=== PATIENT | male | born 1970 | race Caucasian/White ===

== ENCOUNTER 2017-08-08 10:23 | Emergency (ER) | payer OTHER, MEDICAID ==
[2017-08-08 10:46] VITALS: PULSE 73; TEMP 97.9
--- NOTE | 2017-08-08 10:58 | EDPHY ---
H & P Stated Complaint: twisted left foot on HPI/ROS: CHIEF COMPLAINT: Left foot injury HISTORY OF PRESENT ILLNESS: This is a 47-year-old male who is developmentally disabled. He arrives with his caregiver, with whom he lives. She tells me that on , 2 days ago, he reports twisting his left foot while at his day program. He has not complained of pain. He has been walking without a limp. However, this morning she noticed that the foot was swollen and when she palpated the bones of his foot he had pain along the lateral aspect. He denies pain. REVIEW OF SYSTEMS: A ten point review of systems was performed and is negative with the exception of the items mentioned in the HPI. Past medical history:. 1. Developmental delay 2. Diabetes Past surgical history: None Social history: He lives with a caregiver who has been with him for over 10 years. He attends a day program. He does not use tobacco or alcohol products. General Appearance: Alert. Vital signs reviewed. Neck: Nontender to palpation over the cervical spine in the midline. Respiratory: Lungs are clear to auscultation; no wheezes, rales, or rhonchi. Cardiovascular: Regular rate and rhythm; no murmur, rub, or gallop. Gastrointestinal: Abdomen is soft and nontender, no masses or organomegaly, bowel sounds normal. Skin: Warm and dry, no rashes on exposed skin, normal color. Back: Nontender to palpation over the thoracolumbar spine. No CVAT. Extremities: Left foot is swollen across the top of the foot. There is some bruising at the base of the 4th and 5th toes. Tender to palpation over the metatarsal bones laterally. He has full active range of motion of his left ankle and knee. He is able to wiggle his toes without discomfort. Pulses: 2+ dorsalis pedis pulses bilaterally. Neurological: Alert and oriented. Moving all four extremities easily and equally. Sensation is intact to light touch over his left lower extremity. Psychiatric: Normal affect. - Personal History Current Tetanus/Diphtheria Vaccine: Yes Current Tetanus Diphtheria and Acellular Pertussis (TDAP): Yes - Medical/Surgical History Hx Asthma: No Hx Diabetes: Yes Hx Cardiac Disease: No Hx Renal Disease: No Hx Cirrhosis: No Hx Alcoholism: No Hx HIV/AIDS: No Hx Splenectomy or Spleen Trauma: No Other PMH: diabetes - Social History Smoking Status: Never smoked Constitutional: Initial Vital Signs Temperature (C) 36.6 C 08/08/17 10:40 Heart Rate 73 08/08/17 10:40 Respiratory Rate 20 08/08/17 10:40 Blood Pressure 118/66 08/08/17 10:40 O2 Sat (%) 93 08/08/17 10:40 O2 Delivery Mode Room Air Allergies/Adverse Reactions: No Known Allergies Allergy (Verified 08/08/17 10:39) Home Medications: Medication Instructions Recorded ARIPiprazole 08/08/17 Chlorhexidine Gluconate 08/08/17 Invokana 08/08/17 Januvia 50 mg 08/08/17 Lamotrigine 08/08/17 Lisinopril 08/08/17 Metformin HCl 08/08/17 SIMVASTATIN 08/08/17 Sertraline HCl 08/08/17 Vitamin B Complex/Folic Acid 08/08/17 Medical Decision Making - Diagnostics Imaging Results: Imaging Impressions Foot X-Ray 08/08/17 10:59 Impression: Negative left foot radiographs. ED Course/Re-evaluation: The foot x-ray does not show a fracture or dislocation. He has a normal ankle exam and I do not suspect ankle fracture or dislocation. He is able to walk without difficulty. I think that he has a contusion. There is no evidence of infection. Pain control discussed. Danger signs reviewed. Differential Diagnosis: I considered a differential diagnosis of foot pain that includes but is not limited to fracture, dislocation, contusion, sprain/strain, gout, and cellulitis. Departure - Departure Disposition: Home, Routine, Self-Care Clinical Impression: Foot contusion Qualifiers: Encounter type: initial encounter Laterality: left Qualified Code(s): S90.32XA - Contusion of left foot, initial encounter Condition: Good Instructions: Foot Contusion (ED), R.I.C.E. Treatment (ED) Additional Instructions: Adult Pain & Fever Control: We recommend Acetaminophen (Tylenol) and Ibuprofen (Motrin,Advil) for pain and fever control. When fever is high or pain severe, both drugs can be used at the same time, but at different intervals. Please note the time differences. Your dose is: Acetaminophen 650mg every 4 to 6 hours Ibuprofen 400mg every 8 hours with food OR Note: do not take Acetaminophen with Hydrocodone (Vicodin, Lortab) or Oycodone (Percocet). These medications also contain Acetaminophen. No more than 3000mg of Acetaminophen should be taken in 24 hours (for an adult). Referrals: Mina Alexander DO [Doctor of Osteopathy] - As per Instructions
[2017-08-08 11:59] VITALS: BP 126/58; RESP 16; O2SAT 94
== END 2017-08-08 11:57 | disposition home or self-care (01) ==
LOC: CED 10:23
DX: S90.32XA Contusion of left foot, initial encounter (principal); E11.9 Type 2 diabetes mellitus without complications; Z79.84 Long term (current) use of oral hypoglycemic drugs; X58.XXXA Exposure to other specified factors, initial encounter
CPT/HCPCS: 73630-PO